=== PATIENT | female | born 1975 | race Caucasian/White ===

== ENCOUNTER 2020-10-04 10:18 | Emergency (ER) | payer SELFPAY | END 2020-10-04 11:10 | disposition left against medical advice (07) | LOC: KA.ED 10:18 | DX: Z53.21 Procedure and treatment not carried out due to patient leaving prior to being seen by health care provider (principal) ==

== ENCOUNTER 2021-10-22 15:35 | Emergency (ER) | payer SELFPAY ==
[2021-10-22] MEDS ORDERED: cefTRIAXone 1 GM Vial IM ONE (17:42)
[2021-10-22] MEDS ORDERED: Azithromycin 250 MG Tab PO ONE (17:44)
[2021-10-22] MEDS ORDERED: metroNIDAZOLE 500 MG Tab PO ONE (17:46)
[2021-10-25 12:07] LABS: C.TRACHOMATIS BY TMA Negative (Negative); N.GONORRHOEAE BY TMA Negative (Negative)
== END 2021-10-22 18:15 | disposition home or self-care (01) ==
LOC: KA.ED 15:35
DX: T76.21XA Adult sexual abuse, suspected, initial encounter (principal); A59.01 Trichomonal vulvovaginitis; Z88.0 Allergy status to penicillin; Z91.048 Other nonmedicinal substance allergy status; Z88.8 Allergy status to other drugs, medicaments and biological substances; Z72.0 Tobacco use
CPT/HCPCS: 81001; 86703; 87491; 87591; 99284; A9270-GY